=== PATIENT | female | born 1970 | race Caucasian/White ===

== ENCOUNTER 2024-11-26 22:27 | Emergency (ER) | payer OTHER ==
[2024-11-26 22:33] VITALS: BP 104/74; PULSE 77; RESP 18; TEMP 98.5; BMI 33.3
== END 2024-11-27 00:30 | disposition home or self-care (01) ==
LOC: JERFT 22:27 → JER 22:27
DX: M25.471 Effusion, right ankle (principal)
CPT/HCPCS: 73610-TC-RT-FY; 99283-25